=== PATIENT | male | born 1990 | race African-American/Black ===

== ENCOUNTER 2016-08-26 03:22 | Inpatient (IN) | payer SELFPAY ==
[~2016-08-26] VITALS: Ht 175.3 cm; Wt 113.2 kg
[2016-08-26] VITALS (10 sets, daily range): BP systolic 116–174; BP diastolic 91–105; Ht 175.3 cm; Wt 113.2 kg
--- NOTE | ~2016-08-26 | OP ---
PATIENT NAME: JASWANT NEGRO MEDICAL RECORD: [id number] :88 LOCATION:[id number] ADMISSION DATE:08/26/16 SURGEON: JAKE ADAN MD DATE OF OPERATION: 08/27/2016 PREOPERATIVE DIAGNOSES: 1. Midshaft femoral fracture of the right femur. 2. Posterior wall unstable acetabular fracture. PROCEDURES: 1. Intramedullary nailing of the midshaft femur fracture. 2. Open reduction and internal fixation of the posterior wall acetabular fracture. SURGEON: Jake Adan MD. ANESTHESIA: General. INTRAOPERATIVE COMPLICATIONS: None. SUMMARY OF PATHOLOGIC FINDINGS: The patient's midshaft fracture was essentially exactly transverse in the middle of the shaft. Posterior wall fracture represented a very large portion and was deemed to be unstable as seen on CT scans; therefore, admitted for fixation. OPERATIVE SUMMARY IN DETAIL: After obtaining the appropriate preoperative orthopedic surgery consents as well as anesthetic consultation, evaluation and clearance, the patient was brought to the operating room and placed on the operating table and placed on the fracture table in supine position. After adequate general laryngeal mask was administered, the patient's right leg was placed in the fracture boot. The left leg was placed in the well leg lockhart. All pressure points were well padded. He was held firmly to the operating table using strap sheets as well as seatbelt. The patient's fracture was reduced as seen under fluoroscopy. Lateral intramedullary nail T2 from [employer] was chosen. A ball-tipped guidewire was passed across the fracture site with some degree of difficulty. Serial and sequential reaming were done for a size 12 x 380 nail, which was put in the appropriate position. A dual distal interlocking was then followed by a proximal interlocking. Having completed this, wounds were copiously irrigated and closed with #1 Vicryl followed by 2-0 Vicryl followed by skin norma. At this point, the patient was transferred to a regular OR bed where he was put in the left lateral decubitus position. Again, all pressure points were well padded to include down leg peroneal pad as well as axillary roll. He was held firmly to the operating table using the vacuum pack suction system. The right hip and buttock region were prepped and draped in a routine sterile fashion. Curvilinear incision was made just off the posterior edge of the greater trochanter and on the femur. This dissection was carried through the ____ down to the piriformis, which was identified. Dissection was then carried upward at this point in attempts to not release the piriformis. The fracture fragment was identified and nondisplaced at this point. A single model plate was then placed across the fracture with the last hole of which holding down the fracture in a tension technique with several screws across the fracture. At no point did any screws enter into the acetabular joint as seen on fluoro and by manual feel. Wound was then copiously irrigated and closed. The hip capsule was closed with #2 Ethibond followed by reapproximation of the short superior Gemelli muscles. The fascia of the gluteus ashley was likewise closed OPERATIVE REPORT [id number] JASWANT NEGRO with #2 Ethibond. This was followed by #1 Vicryl, 2-0 Vicryl and skin norma. Sterile dressings were applied. The patient was awakened and taken to recovery room in stable condition. All final needle and sponge counts were correct. TRANSINT:[id number] Voice Confirmation ID: [id number] DOCUMENT ID: [id number] JAKE ADAN MD CC: [id number] DICTATION DATE: 09/02/16 0456 MANAGER MARKETING COMMUNICATIONS: 09/02/16 1311 DIS IN 08/30/16 [facility] [address] [place] [address]
[2016-08-26 04:01] LABS: BASOPHILS 0.5 % (0-2); EOSINOPHILS 0.3 % (0-7); HEMATOCRIT 40.4 % (42.0-54.0); HEMOGLOBIN 13.8 g/dL (13.5-17.5); IMMATURE GRANULOCYTES 0.5 % (0-5); LYMPHOCYTES 29.7 % (15-50); MCH 31.4 pg (26.0-34.0); MCHC 34.2 g/dL (31.0-37.0); MCV 91.8 fL (80.0-100.0); MEAN PLATELET VOLUME 10.9 fL (7.4-10.4); MONOCYTES 4.6 % (2-11); NEUTROPHILS 64.4 % (40-80); PLATELET COUNT 150 10x3/uL (130-400); RDW 12.3 % (11.5-14.5); WBC 9.8 10x3/uL (4.8-10.8)
[2016-08-26 04:06] LABS: ALBUMIN 3.7 g/dL (3.4-5.0); ALKALINE PHOSPHATASE 63 U/L (46-116); ALT (SGPT) 32 U/L (10-68); BILIRUBIN - TOTAL 0.53 mg/dL (0.2-1.3); CALC OSMOLALITY 282 mosm/kg (275-300); CALCIUM 8.5 mg/dL (8.5-10.1); CARBON DIOXIDE 25.1 mmol/L (21.0-32.0); CHLORIDE - SERUM 105 mmol/L (98-107); CREATININE - SERUM 1.1 mg/dL (0.6-1.3); GLUCOSE 122 mg/dL (74-106); POTASSIUM - SERUM 3.4 mmol/L (3.5-5.1); PROTEIN - SERUM 7.4 g/dL (6.4-8.2); SODIUM 142 mmol/L (136-145); UREA NITROGEN 10 mg/dL (7-18); eGFR NON AFRICAN AMERICAN 85 mL/min (90-120)
[2016-08-26 07:59] LABS: UDS - AMPHET NEGATIVE QUAL (NEGATIVE); UDS - BARB NEGATIVE QUAL (NEGATIVE); UDS - BENZO NEGATIVE QUAL (NEGATIVE); UDS - COCAINE NEGATIVE QUAL (NEGATIVE); UDS - METH NEGATIVE QUAL (NEGATIVE); UDS - OPIATE NEGATIVE QUAL (NEGATIVE); UDS - PCP NEGATIVE QUAL (NEGATIVE); UDS - THC NEGATIVE QUAL (NEGATIVE)
[2016-08-26 08:32] LABS: APPEARANCE CLEAR (CLEAR); BILIRUBIN NEGATIVE (NEGATIVE); COLOR STRAW (YELLOW); GLUCOSE NEGATIVE (NEGATIVE); KETONE SMALL mg/dL (NEGATIVE); LEUKOCYTE ESTERASE TRACE (NEGATIVE); NITRITE NEGATIVE (NEGATIVE); PROTEIN NEGATIVE (NEGATIVE); UROBILINOGEN NORMAL (NORMAL)
[2016-08-26 08:33] LABS: BACTERIA NONE SEEN /hpf (NONE SEEN); EPITHELIAL CELLS RARE /hpf (0-5); WHITE CELLS - URINE RARE /hpf (0-5)
--- NOTE | 2016-08-26 15:05 | NUR ---
PT ARRIVED ON UNIT VIA STRETCHER. REPORT TAKEN FROM ER. WILL COMPLETE ASSESSMENT.
--- NOTE | 2016-08-26 16:30 | NUR ---
CALLED AND PT UNABLE TO SET UP PT IN TRACTION DUE TO THERAPIST BEING GONE. DO NOT HAVE THE APPROPRIATE EQUIPMENT OR NEEDS TO SET UP TRACTION AT THIS TIME.
--- NOTE | 2016-08-26 17:00 | NUR ---
PT GIVEN DINNER TRAY, ABLE TO EAT INDEPENDENTLY. COMPLAINING OF PAIN. WILL START IMMIGRATION JUDGE PER ORDER. WILL CONTINUE TO MONITOR
--- NOTE | 2016-08-26 19:00 | NUR ---
REPORT RECEIVED, INITIAL ASSESSMENT COMPLETE, PLEASE SEE FLOW SHEETS FOR DETAILS. TURNING ASSISTANCE PROVIDED. INDEPENDED WITH ORAL CARE, COMPLAINED OF PAIN 8/10 IN FEET, GAVE PAIN MEDS PER ORDERS. WILL CONTINUE POC.
--- NOTE | 2016-08-26 19:00 | NUR ---
REPORT RECIEVED, INITIAL ASSESSMENT COMPLETE, PLEASE SEE FLOW SHEETS FOR DETAILS. BED LOW AND LOCKED, CALL LIGHT IN REACH. COMPLAINS OF PAIN 10/10 IN RIGHT LEG. WILL CHECK LAST FISHERIES MANAGEMENT BIOLOGIST BOLUS TIME AND GIVE ANOTHER ACCORDING TO ORDERS. WILL CONTINUE POC.
--- NOTE | 2016-08-26 21:00 | NUR ---
PT EATING, NO CHANGE IN PAIN, INSTRUCTED ON FUEL CELL BATTERY TECHNICIAN USE. DENIES ASKED FOR A FAN, THIS WAS PROVIDED. BED LOW AND LOCKED, CALL LIGHT IN REACH. WILL CONTINUE POC.
--- NOTE | 2016-08-26 22:20 | NUR ---
PT COMPLAINING OF CRAMPS, HICCUPS, PAIN, AND HEARTBURN. CALLED DEQUAN VILLARREAL APN FOR DR ADAN. PT BP ELEVATED AND CONCLUDED DUE TO ABOVE SYMPTOMS, RECIEVED NEW ORDERS. WILL CONTINUE POC.
--- NOTE | 2016-08-26 23:00 | NUR ---
REASSESSMENT COMPLETE, PLEASE SEE FLOW SHEETS FOR DETAILS. BED LOW AND LOCKED, CALL LIGHT IN REACH. ATTEMPTED TO MAKE HIM COMFORTABLE POSSIBLE. DENIES ANY OTHER NEEDS ATT. WILL CONTINUE POC.
[2016-08-27] VITALS (21 sets, daily range): BP systolic 105–160; BP diastolic 65–121
--- NOTE | 2016-08-27 02:59 | NUR ---
REASSESSMENT COMPLETE, PLEASE SEE FLOW SHEETS FOR DETAILS. BED LOW AND LOCKED, CALL LIGHT IN REACH. WILL CONTINUE POC.
--- NOTE | 2016-08-27 05:00 | NUR ---
RESTING QUIETLY, NO S&S OF ACUTE DISTRESS NOTED, VSS, WILL CONTINUE POC.
[2016-08-27 05:04] LABS: BASOPHILS 0.4 % (0-2); EOSINOPHILS 0.5 % (0-7); HEMATOCRIT 39.5 % (42.0-54.0); HEMOGLOBIN 13.4 g/dL (13.5-17.5); IMMATURE GRANULOCYTES 0.2 % (0-5); LYMPHOCYTES 40.1 % (15-50); MCH 31.6 pg (26.0-34.0); MCHC 33.9 g/dL (31.0-37.0); MCV 93.2 fL (80.0-100.0); MEAN PLATELET VOLUME 9.7 fL (7.4-10.4); NEUTROPHILS 49.8 % (40-80); RBC 4.24 10x6/uL (4.20-6.10); RDW 12.4 % (11.5-14.5); WBC 9.2 10x3/uL (4.8-10.8)
[2016-08-27 05:06] LABS: PLATELET COUNT 233 10x3/uL (130-400)
[2016-08-27 05:12] LABS: CALC OSMOLALITY 276 mosm/kg (275-300); CALCIUM 8.1 mg/dL (8.5-10.1); CARBON DIOXIDE 29.2 mmol/L (21.0-32.0); CHLORIDE - SERUM 101 mmol/L (98-107); GLUCOSE 93 mg/dL (74-106); POTASSIUM - SERUM 3.2 mmol/L (3.5-5.1); SODIUM 139 mmol/L (136-145); UREA NITROGEN 10 mg/dL (7-18); eGFR NON AFRICAN AMERICAN > 90 mL/min (90-120)
--- NOTE | 2016-08-27 07:20 | NUR ---
RECEIVED PT FOR CARE. PT RESTING IN BED. CALL LIGHT AND BUILDING CODE INSPECTOR WITHIN REACH. ASSESSMENT COMPLETED. RIGHT LEG WITH PALPABLE PULSE. PT REPOSITIONED FOR COMFORT.
--- NOTE | 2016-08-27 08:30 | NUR ---
PT C.O 10/10 PAIN IN RIGHT LEG. GIVEN DILAUDID BOLUS VIA POWDERED SUGAR PULVERIZER OPERATOR ORDERED. PT HAS POWDERED SUGAR PULVERIZER OPERATOR BUTTON WITHIN REACH AND CALL LIGHT WITHIN REACH.
--- NOTE | 2016-08-27 08:44 | NUR ---
PHYSICAL THERAPY AT BEDSIDE. PT'S RIGHT LEG PLACED IN TRACTION WITH 5 LB WEIGHT. PT TOLERATED WELL. PILLOWS PROPPED AROUND RIGHT LEG TO KEEP LEG FROM TURNING OUTSIDE.
--- NOTE | 2016-08-27 11:15 | NUR ---
PT RESTING COMFORTABLY. INFORMATICS PHYSICIAN LIAISON BUTTON IN USE. NO NEEDS AT THIS TIME.
--- NOTE | 2016-08-27 13:20 | NUR ---
PAIN UNDER CONTROL AT THIS TIME. PT GIVEN HIBICLENSE WIPE DOWN FOR PREOP.
--- NOTE | 2016-08-27 14:40 | NUR ---
PT C/O NAUSEA. ZOFRAN GIVEN ORDERED. CALLED SURGERY AND SPOKE WITH CARRINGTON FOR AN UPDATE. SHE REPORTS THAT HE IS NEXT IN LINE FOR SURGERY.
--- NOTE | 2016-08-27 15:10 | NUR ---
PT TO OR WITH OR STAFF. SENT WITH RIGHT HAND PIV WITH NS HANGING. PT'S GIRLFRIEND AT BEDSIDE. UPDATED ON PLAN AND SENT OUT TO ICU WAITING ROOM.
--- NOTE | 2016-08-27 19:00 | NUR ---
REPORT RECIEVED, PT IN OR FOR SURGERY ON RIGHT FEMUR. WILL AWAIT REPORT AND RETURN FROM PACU.
--- NOTE | 2016-08-27 21:22 | NUR ---
1944 RECIEVED REPORT FROM PACU FROM ZAFAR HASKINS. 1954 PT RETURNED TO ROOM FROM PACU VIA BED. VSS ATT, 97% ON R.A.. INITIAL ASSESSMENT COMPLETE, PLEASE SEE FLOW SHEETS FOR DETAILS. WILL CONTINUE POC. 2004 PT ASKING ABOUT TURNING AND SITTING UP, CALLED DEQUAN VILLARREAL APN AND SHE SAID TO PAGE DR ADAN AND ASK HIM. PAGED DR ADAN. [address] ADAN, HE SAID HOB NO HIGHER THAT 30 DEGREES TONIGHT AND HE CAN TOSS AND TURN MUCH HE IS COMFORTABLE, DR ADAN WILL GET PT STARTED WITH HIM TOMORROW. 2044 GAVE VIDEO RECORDER MECHANIC BOLUS OF 0.4MG PER ORDERS FOR PAIN 10/10 IN LEG. 2099 FAMILY IN ROOM, HEATED DISCUSSION, ASKED PT IF EVERYTHING WAS OKAY AND TWO OF THE FAMILY MEMBERS LEFT, PT STATED HE WAS PASSING GAS AND STATED HE WOULD HAVE TO USE BED MYERS FOR A BM TONIGHT. HIS WAS STILL IN ROOM, SAID HE WOULD CALL ME IN WHEN HE NEEDED ME. VSS ATT, BED LOW AND LOCKED, CALL LIGHT IN REACH. WILL CONTINUE POC.
--- NOTE | 2016-08-27 23:00 | NUR ---
REASSESSMENT COMPLETE, PLEASE SEE FLOW SHEETS FOR DETAILS. ORAL CARE AND TURNING OFFERED, BOTH WERE REFUSED. BED LOW AND LOCKED, CALL LIGHT IN REACH. VSS, WILL CONTINUE POC.
--- NOTE | 2016-08-27 23:00 | NUR ---
REASSESSMENT COMPLETE, PLEASE SEE FLOW SHEETS FOR DETAILS. PT RECIEVED BED BATH, PARTIAL LINEN CHANGE PROVIDED. 200 ML EMISIS FROM N/V, ZOFRAN GIVEN PER ORDERS. BLEEDED NOTED ON DRAW SHEET UNDER PT OF APPROXIMATED 8" X2, WILL CONTINUE TO MONITOR THIS. VSS ATT, BED LOW AND LOCKED, CALL LIGHT IN REACH. WILL CONTINUE POC.
[2016-08-28] VITALS (23 sets, daily range): BP systolic 87–157; BP diastolic 45–107
--- NOTE | 2016-08-28 01:00 | NUR ---
SITTING UP IN BED WATCHING TV. BED LOW AND LOCKED, CALL LIGHT IN REACH. STATES HE IS FEELING A LITTLE BETTER NOW. DENIES ANY OTHER NEEDS ATT. BED LOW AND LOCKED, CALL LIGHT IN REACH. VSS, WILL CONTINUE POC.
--- NOTE | 2016-08-28 03:00 | NUR ---
REASSESSMENT COMPLETE, PLEASE SEE FLOW SHEETS FOR DETAILS. PT C/O HICCUPS, GAVE THORAZINE PER ORDERS. DENIES ANY OTHER NEEDS ATT. VSS, BED LOW AND LOCKED, CALL LIGHT IN REACH. WILL CONTINUE POC.
--- NOTE | 2016-08-28 05:00 | NUR ---
RESTING, NO S&S OF ACUTE DISTRESS NOTED. BED LOW AND LOCKED, CALL LIGHT IN REACH. WILL CONTINUE POC.
[2016-08-28 05:17] LABS: HEMATOCRIT 37.2 % (42.0-54.0); HEMOGLOBIN 12.5 g/dL (13.5-17.5)
[2016-08-28 05:32] LABS: ALBUMIN 3.3 g/dL (3.4-5.0); ALKALINE PHOSPHATASE 57 U/L (46-116); ALT (SGPT) 44 U/L (10-68); CALC OSMOLALITY 270 mosm/kg (275-300); CHLORIDE - SERUM 100 mmol/L (98-107); CREATININE - SERUM 1.1 mg/dL (0.6-1.3); GLUCOSE 112 mg/dL (74-106); POTASSIUM - SERUM 3.7 mmol/L (3.5-5.1); PROTEIN - SERUM 6.5 g/dL (6.4-8.2); SODIUM 136 mmol/L (136-145); eGFR NON AFRICAN AMERICAN 85 mL/min (90-120)
[2016-08-28 05:36] LABS: UREA NITROGEN 7 mg/dL (7-18)
--- NOTE | 2016-08-28 07:00 | NUR ---
REC'D CARE OF PT. A&O X3.DENIES NEEDS. C/O PAIN. INSTRUCTED TO USE LINE CLEARANCE FOREMAN.VSS.
--- NOTE | 2016-08-28 07:30 | NUR ---
REPOSITIONED FOR COMFORT AND TO PRESERVE SKIN INTEGRITY. REPOSITIONED ON RIGHT SIDE. PILLOWS BETWEEN LEGS AND UNDER LEGS.VSS.
--- NOTE | 2016-08-28 07:45 | NUR ---
BREAKFAST TRAY SERVED. ASSISTED WITH MENU.
--- NOTE | 2016-08-28 08:06 | NUR ---
INITIAL ASSESSMENT COMPLETED PER FLOW SHEET.
--- NOTE | 2016-08-28 08:29 | NUR ---
REPOSTIONED FOR COMFORT AND TO PRESERVE SKIN INTEGRITY. REPOSITIONED OF LEFT SIDE. PILLOWS BETWEEN LEGS AND UNDER LEGS. DENIES OTHER NEEDS. VSS.
--- NOTE | 2016-08-28 09:45 | NUR ---
C/O NAUSEA. ZOFRAN GIVEN.
--- NOTE | 2016-08-28 09:59 | NUR ---
REPOSITIONED FOR COMFORT AND TO PRESERVE SKIN INTEGRITY. ON BACK. VSS. DENEIS OTHER NEEDS.
--- NOTE | 2016-08-28 10:00 | NUR ---
NAUSEA IS BETTER.
--- NOTE | 2016-08-28 10:25 | NUR ---
REPOSITIONS SELF IN BED.
--- NOTE | 2016-08-28 11:00 | NUR ---
REASSESSMENT COMPLETED PER FLOW SHEET. NO ACUTE CHANGES.
--- NOTE | 2016-08-28 11:15 | NUR ---
REQUESTED LEMON RED DEVIL SODA. OBLIGED.
--- NOTE | 2016-08-28 11:30 | NUR ---
REPOSITIONED FOR COMFORT AND TO PRESERVE SKIN INTEGRITY. ON RIGHT SIDE.
--- NOTE | 2016-08-28 12:00 | NUR ---
VISITOR AT BEDSIDE. UPDATED BY PT.
--- NOTE | 2016-08-28 12:12 | NUR ---
PT AT BEDSIDE.
--- NOTE | 2016-08-28 12:15 | NUR ---
PT REPOSITIONED AND EVALUATED.
--- NOTE | 2016-08-28 12:58 | NUR ---
AWAKE AND ALERT. CONTINUE TO WAIT ON BED TO TRANSFER OUT OF ICU. VSS.
--- NOTE | 2016-08-28 14:21 | NUR ---
PARTIAL LINEN CHANGE. REPOSITIONED FOR COMFORT AND TO PRESERVE SKIN INTEGRITY. ON LEFT SIDE.VSS.
--- NOTE | 2016-08-28 14:24 | NUR ---
REASSESSMENT COMPLETED PER FLOW SHEET. NO ACUTE CHANGES.VSS.
--- NOTE | 2016-08-28 15:36 | NUR ---
DENIES NEEDS. DENIES NAUSEA.
--- NOTE | 2016-08-28 15:52 | NUR ---
REQUESTED MAYE GUO. OBLIGED.
--- NOTE | 2016-08-28 16:00 | NUR ---
REPOSITIONS SELF IN BED.
--- NOTE | 2016-08-28 16:28 | NUR ---
DINNER TRAY SERVED.
--- NOTE | 2016-08-28 17:49 | NUR ---
RESTING WITH EYES CLOSED. RESPONSE APPROPRIATLY TO VERBAL STIMULI. TACHY CARDIC, ST AT 102. NO ECTOPY SEEN. ON RA SATTING 97%. RR 20 EVEN AND UNLABORED. RIGHT LEG DRSG WITH MINIMAL AMOUNT OF DRIED DRAINAGE. NOTHING NEW SEEN. SCD. PPP. ADAM. A&O X4. CLWR. CPOC. VSS
--- NOTE | 2016-08-28 19:00 | NUR ---
REPORT RECEIVED, INITIAL ASSESSMENT COMPLETE, PLEASE SEE FLOW SHEETS FOR DETAILS. PT HAS ORDERS FOR A TRANSFER TO FLOOR, AND PER DR ADAN MAY GO HOME IN AM. USING RESTAURANT FRONT MANAGER FOR PAIN, STATES THIS IS HELPING. HAS HICCUPS ATT, INFORMED PT 1HR 30MIN BEFORE HE CAN HAVE THORAZINE AGAIN, PT UNDERSTOOD. DENIES ANY OTHER NEEDS ATT. BED LOW AND LOCKED, CALL LIGHT IN REACH, VSS, WILL CONTINUE POC.
--- NOTE | 2016-08-28 21:00 | NUR ---
FRIEND IN ROOM VISITING. DENIES PAIN/NEEDS ATT. VSS, BED LOW AND LOCKED, CALL LIGHT IN REACH. WILL CONTINUE POC.
--- NOTE | 2016-08-28 22:50 | NUR ---
PT WITH TEMP 100.9, DRESSING SATURATED. PAGED DR ADAN.
--- NOTE | 2016-08-28 23:00 | NUR ---
SPOKE WITH DR ADAN ABOUT PT STATUS. ORDERED DRESSING CHANGE, AQUACEL DRESSING TO POSTERIOR INCITION AND XEROFORM TO ANTERIOR INCISIONS WITH PRESSURE DRESSING. ALSO STATED TEMPS SUCH ARE ASSOCIATED WITH THIS TYPE OF PROCEDURE AND IF THE NEED ARRISES TO ORDER TYLENOL OR IBUPROFEN. DR ADAN ALSO STATED THAT PT CAN NOW BE WEIGHT BEARING TOLERATED. CAN SIT UP, GET IN CHAIR ETC. LONG HE TOLERATES IT. WILL FOLLOW ORDERS AND CONTINUE POC.
--- NOTE | 2016-08-28 23:30 | NUR ---
DRESSING CHANGE COMPLETE. OLD DRESSING REMOVED USING CLEAN GLOVES. STERIL GLOVES DONNED AND USING STERILE SALINE AND STERILE 4X4'S CLEANED POSTERIOR INCISION. USING STERILE TECHNIQUE APPLIED LONG AQUACEL AG DRESSING OVER POSTERIOR INCISION. 4" XEROFORM PLACED OVER ANTERIOR INCISIONS. STERILE 4X4' PLACED OVER ALL INCISIONS AND ABD PADS X3 OVER THEM, MEDIPORE TAPE APPLIED OVER TIGHTLY TO FORM PRESSURE DRESSING. TIMED AND DATED. PT TOLERATED WELL. REPOSITIONED IN BED FOR COMFORT. ELEVATED LEGS AND HEELS BRIDGED. BED LOW AND LOCKED, CALL LIGHT IN REACH. VSS. WILL CONTINUE POC.
--- NOTE | 2016-08-28 23:40 | NUR ---
RECIEVED ANOTHER CALL FROM DR ADAN TO CHECK ON PT. GAVE UPDATE OF DRESSING CHANGE, PLEASED. HE INQUIRED ABOUT TRANSFER AND INFORMED HIM WE WERE STILL WAITING ON A BED.
--- NOTE | 2016-08-29 00:08 | NUR ---
HAVING HICCUPS, OFFERED THORAZINE, THIS WAS ACCEPTED.
--- NOTE | 2016-08-29 00:52 | NUR ---
HEATED UP PT'S DINNER PER REQUEST. BED LOW AND LOCKED, CALL LIGHT IN REACH. WILL CONTINUE POC.
--- NOTE | 2016-08-29 03:00 | NUR ---
PT RESTING, DENIES NEEDS ATT, USING SECTION HAND HELPER TO CONTROL PAIN. BED LOW AND LOCKED, CALL LIGHT IN REACH. VSS, WILL CONTINUE POC.
--- NOTE | 2016-08-29 05:00 | NUR ---
RESTING, NO S&S OF DISTRESS NOTED. VSS, BED LOW AND LOCKED, CALL LIGHT IN REACH. WILL CONTINUE POC.
[2016-08-29 07:00] VITALS: BP 111/61
--- NOTE | 2016-08-29 07:00 | NUR ---
REC'D CARE OF PT. A&O X3. REPOSITIONED FOR COMFORT AND TO PRESERVE SKIN INTEGRITY. TURNED ON LEFT SIDE. PILLOWS PLACED BETWEEN LEGS AND BEHIND BACK FOR SUPPORT. DENIES OTHER NEEDS. ON RA, SATTING 98%. RR 20 EVEN AND UNLABORED. LUNGS CTA. RIGHT LEG BRADLEY BERGMAN&Anneliese. JAIR. PPP. SCD'S. CLWR. CPOC.
--- NOTE | 2016-08-29 09:10 | NUR ---
REPOSITIONED FOR COMFORT AND TO PRESERVE SKIN INTEGRITY. SIT UP IN BED FOR BREAKFAST, HIS REQUEST. DENIES OTHER NEEDS. VSS.
--- NOTE | 2016-08-29 09:30 | NUR ---
REPOSITIONED FOR COMFORT.
--- NOTE | 2016-08-29 09:46 | NUR ---
PT HERE. AMBULATED 60 FEET AND BACK TO BED.
--- NOTE | 2016-08-29 09:46 | NUR ---
ORDERS REC'D YESTERDAY TO TRANSFER TO FLOOR. CONTINUE TO WAIT FOR A BED TO BE ASSIGNED.
--- NOTE | 2016-08-29 10:39 | NUR ---
REPOSTIONED FOR COMFORT AND TO PRESERVE SKIN INTEGRITY. ON BACK.
[2016-08-29 11:19] VITALS: BP 131/78
--- NOTE | 2016-08-29 12:00 | NUR ---
VISITORS AT BEDSIDE. UPDATED BY PT.
--- NOTE | 2016-08-29 13:11 | NUR ---
REPOSITIONED SELF IN BED.
--- NOTE | 2016-08-29 14:00 | NUR ---
PT AT [facility]. AMBULATED 30 FEET AND BACK TO BED.
--- NOTE | 2016-08-29 14:07 | NUR ---
RIGHT HAND PIV DC'D WITH TIP INTACT BECAUSE IT WAS LEAKING. RESITED 22 GAUGE PIV AT RIGHT AC X1 STICK.
--- NOTE | 2016-08-29 14:11 | NUR ---
DRSG COMING OFF AT RIGHT HIP. REINFORCED WITH STERILE 4X4'S AND SECURED WITH MEDIPORE TAPE. NO S/S OF INFECTION. NO DRAINAGE.
[2016-08-29 14:54] VITALS: BP 137/68
--- NOTE | 2016-08-29 14:57 | NUR ---
WANTED SOMETHING TO EAT. TURKEY SANDWICH PROVIDED.
--- NOTE | 2016-08-29 15:56 | NUR ---
DR. ADAN HERE.
--- NOTE | 2016-08-29 16:08 | NUR ---
C/O NAUSEA. ZOFRAN GIVEN.
--- NOTE | 2016-08-29 17:00 | NUR ---
NAUSEA IS BETTER.
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
--- NOTE | 2016-08-29 19:46 | NUR ---
25MG THROAZINE GIVEN PO FOR HICCUPS, PT DENIES FURTHER NEEDS.
[2016-08-29 20:00] VITALS: BP 122/60
--- NOTE | 2016-08-29 21:00 | NUR ---
PT TALKING ON CELL PHONE INQUIRING ABOUT ROOM AVAILABILITY, APPLICATIONS INTERN CALLED REGARDING PT REQUEST FOR REGULAR ROOM, INFORMED WOULD BE GIVEN ONE THIS PM, PT PROVIDED UPDATE.
--- NOTE | 2016-08-29 21:30 | NUR ---
PT COMPLAINS OF NEEDING A BATH, TOWELS AND BATHING CLOTHS PROVIDED, CALL LIGHT AND SIGNAL PROCESSING ENGINEER BUTTON IN REACH.
--- NOTE | 2016-08-29 22:36 | NUR ---
REPORT CALLED TO [facility] ON MED SURG.
--- NOTE | 2016-08-29 22:45 | NUR ---
PT TRANSFERRED TO ROOM 2208 WITH PATTERN CHANGER INFUSING, PATTERN CHANGER VERIFIED WITH RECEIVING RN, CALL LIGHT AND PATTERN CHANGER IN REACH.
--- NOTE | 2016-08-29 22:56 | NUR ---
RECIEVED PT FROM ICU, NO DISTRESS NOTED, ORIENTED TO ROOM AND CALL LIGHT, SR'S UP, SCD'S ON, CL IN REACH, WILL MONITOR
--- NOTE | 2016-08-30 00:28 | NUR ---
SITTING UP IN BED WATCHING TV, DENIES NEEDS, CL IN REACH
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
--- NOTE | 2016-08-30 01:42 | NUR ---
RESTING WITH EYES CLOSED, EASILY AROUSED, FALL PRECAUTIONS IN PLACE, CL IN REACH
[2016-08-30 01:43] VITALS: BP 129/74
--- NOTE | 2016-08-30 05:57 | NUR ---
MOBILE ARCHITECT FILLED WITH DILAUDID PER ORDERS
[2016-08-30 06:20] VITALS: BP 126/72
--- NOTE | 2016-08-30 07:15 | NUR ---
PT REC'D FROM [facility]. RESTING IN BED WATCHING TV. RATING CURRENT PAIN IN R HIP 01/11. REMINDED PT OF DILAUDID POLICE OR PATROL PARK OFFICER AND HOW TO USE IT. AAOX4. DRESSING TO R HIP CDI. IV TO R AC FREE OF REDNESS AND SWELLING. BED LOW, CALL LIGHT IN REACH, DENIES NEEDS. CPOC.
--- NOTE | 2016-08-30 09:03 | NUR ---
Patient Name: JASWANT NEGRO Admission Status: ER Accout number: [id number] Admission Date: 08-26-2016 : 1990 Admission Diagnosis: Attending: DOTTIE Current LOS: 4 Anticipated DC Date: 08-31-2016 Planned Disposition: Home Primary Insurance: UNINSURED DISCOUNT PLAN Discharge Planning Comments: CM NOTE: CM met with patient to assess discharge planning needs. Patient is an independent man who lives in a 3 story house with multiple stairs to climb with his family. He stated that a friend would drive him home (Kirstin Simmons [phone]) or his mother Hemalatha Paredes ([phone]) Pt is unsure of what he will need upon discharge. CM will continue to follow and assist as needed. Pt does not have a PCP and uses [facility] [address]. PCP - none Pharmacy- [facility] [address] Kirstin Simmons (friend) [phone] Evelyn Paredes (mother) [phone] Optometric Tech: Debbie Velazco * Is the patient Alert and Oriented? Yes 0 * How many steps to enter\exit or inside your home? 24 0 * PCP NONE 0 * Pharmacy [facility] [address] 0 * Preadmission Environment Home with Family 0 * ADLs Independent 0 * Equipment None 0 * List name and contact numbers for known caregivers / representatives who currently or will assist patient after discharge: HEMALATHA HUBBARD (MOTHER) [phone] 0 * Community resources currently utilized None 0 * Additional services required to return to the preadmission environment? Yes 0 * Can the patient safely return to the preadmission environment? Yes 0 * Has this patient been hospitalized within the prior 30 days at any hospital? No 0 Grand Total: 0
--- NOTE | 2016-08-30 09:05 | NUR ---
MORNING MEDS PASSED AT THIS TIME. PRN TORADOL ADMINISTERED PER PT COMPLAINTS OF CRAMPING IN LOWER LEG. PHYISCAL THERAPY AT BEDSIDE. BED LOW, CALL LIGHT IN REACH, DENIES NEEDS. CPOC.
[2016-08-30 10:15] VITALS: BP 123/69
[2016-08-30 12:54] VITALS: BP 132/85
[2016-08-30] MEDS ORDERED: DILAUDID4 MG PO (13:36)
--- NOTE | 2016-08-30 13:36 | NUR ---
PT UP AMBULATING WITH PHYSICAL THERAPY. DR. ADAN AT BEDSIDE DISCUSSING OUTPATIENT THERAPY.
[2016-08-30] MEDS ORDERED: ELIQUIS2.5 MG PO (13:37)
--- NOTE | 2016-08-30 14:46 | NUR ---
SPOKE WITH KEANU, TOOL ROOM GEAR MACHINE OPERATOR, ABOUT DISCHARGE AND POSSIBLE HOME HEALTH SET UP. KEANU, TOOL ROOM GEAR MACHINE OPERATOR, STATED THAT PT DID NOT HAVE INSURANCE AND THAT IT WOULD BE HARD TO FIND A HOME HEALTH AGENCY THAT WOULD TAKE HIM, BUT SHE WOULD TRY TO SET SOMETHING UP FOR HIM. ASKED PT IF HE WOULD EVEN LIKE TO HAVE HOME HEALTH AND EXPLAINED WHAT HOME HEALTH WAS. PT SAID HE WOULD LIKE TO HAVE IT TO HELP HIM CHANGE HIS DRESSINGS. EXPLAINED TO PT THAT IT WOULD BE HARD TO FIND SOMEONE THAT WOULD ACCEPT HIM WITHOUT INSURANCE. PT STATED THEN THAT IF WE COULD FIND SOMEONE THAT WOULD ACCEPT HIM THAN HE WOULD TAKE IT, BUT IF NOT THEN THAT WOULD BE FINE TOO. SHASTA GARCIAS, AT BEDSIDE COLLECTING THINGS. PATY PROVIDED FOR PT. BED LOW, CALL LIGHT IN REACH, DENIES NEEDS. CPOC.
--- NOTE | 2016-08-30 16:46 | NUR ---
DISCHARGE INSTURCTIONS DISCUSSED WITH PT AT THIS TIME. DECILINED HOME HEALTH. SHOWED PT HOW TO PERFORM DRESSING CHANGES AT HOME FOR SELF CARE. EXPLAINED TO PT TO CALL DR. ADAN'S OFFICE FOR ANY FURTHER QUESTIONS. ESCORTED OUT VIA WC.
--- NOTE | 2016-08-30 17:41 | NUR ---
Late Entry Patient for discharge to home. Would need a walker but no insurer. TC to [employer] to speak with financial screeners. No answer. Left voice mail message. [employer] is not available today. CM advised [place] immigration case manager of other options for a walker for pt without resources. 1500 CM received telephone call. Patient is being discharged. No walker had been obtained. TC to contact with walkers to donate on occasion. She had one almost new. Sturdy. Patient willing to accept. Delivered to the unit. Patient reportedly very pleased. Patient with MD order for outpatient physical therapy. CM spoke with community life director to arrange. DR Bah had discussed home health but no home health order. Nurse instructed patient to call DR Bah's office in the AM to obtain Eliquis. Staff would be in the office after 0900. DR Bah stated he would notify the office that the patient will be coming to pharmacy picking tech the ELiquis.
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
== END 2016-08-30 16:47 | disposition home or self-care (01) | DRG 956 ==
LOC: D.ER 03:22 → D.ICU 10:56 → D.MS 08-29 22:53
PROVIDERS: Emergency Medicine; ADMIT Orthopaedic Surgery
PROC: 0QS404Z Reposition Right Acetabulum with Internal Fixation Device, Open Approach (ICD-10-PCS; principal; 2016-08-27 13:30)
PROC: 0QS836Z Reposition Right Femoral Shaft with Intramedullary Internal Fixation Device, Percutaneous Approach (ICD-10-PCS; 2016-08-27 13:30)
DX: S32.491A Other specified fracture of right acetabulum, initial encounter for closed fracture (principal); S72.301A Unspecified fracture of shaft of right femur, initial encounter for closed fracture; V47.5XXA Car driver injured in collision with fixed or stationary object in traffic accident, initial encounter; R00.1 Bradycardia, unspecified; F10.229 Alcohol dependence with intoxication, unspecified; Y90.6 Blood alcohol level of 120-199 mg/100 ml